=== PATIENT | male | born 1985 | race Two or more races ===

== ENCOUNTER 2022-12-26 15:14 | Emergency (ER) | payer OTHER ==
[~2022-12-26] VITALS: Ht 167.6 cm; Wt 82.6 kg
== END 2022-12-26 20:17 | disposition home or self-care (01) ==
LOC: ER 15:14
DX: M94.0 Chondrocostal junction syndrome [Tietze] (principal)

== ENCOUNTER 2023-05-30 19:46 | Emergency (ER) | payer OTHER ==
[~2023-05-30] VITALS: Ht 167.6 cm; Wt 80.7 kg
[2023-05-30 21:18] LABS: HEMATOCRIT 40.4 % (39.0-48.0); MEAN CELL VOLUME 92.1 fL (80.0-100.00); MEAN CORPUSCULAR HGB CONC 34.7 g/dl (32.0-36.0); PLATELET COUNT 280 K/uL (150-450); RED BLOOD COUNT 4.39 M/uL (4.00-6.00); RED CELL DISTRIBUTION WIDTH 12.9 % (11.5-14.5)
== END 2023-05-30 21:32 | disposition home or self-care (01) ==
LOC: ER 19:47
PROVIDERS: General Practice
DX: J10.1 Influenza due to other identified influenza virus with other respiratory manifestations (principal); Z20.822 Contact with and (suspected) exposure to COVID-19

== ENCOUNTER 2023-06-03 23:40 | Emergency (ER) | payer OTHER ==
[~2023-06-03] VITALS: Ht 167.6 cm; Wt 79.4 kg
[2023-06-04] MEDS ORDERED: BUDESONIDE0.5 MG/2 M IH (07:41)
[2023-06-04] MEDS ORDERED: ORASEP SPRAY30 ML MM (07:41)
[2023-06-04] MEDS ORDERED: ALBUTEROL2.5 MG/3 M IH (07:41)
[2023-06-04] MEDS ORDERED: ZYNCOF 20-400120 ML PO (07:41)
== END 2023-06-04 07:49 ==
LOC: ER 23:40
DX: J11.1 Influenza due to unidentified influenza virus with other respiratory manifestations (principal)

== ENCOUNTER 2023-08-28 09:35 | Emergency (ER) | payer OTHER ==
[~2023-08-28] VITALS: Ht 170.2 cm; Wt 80.7 kg
[~2023-08-28 09:35] MED LIST: ALBUTEROL2.5 MG/3 M IH; BUDESONIDE0.5 MG/2 M IH; ORASEP SPRAY30 ML MM; ZYNCOF 20-400120 ML PO
[2023-08-28] MEDS ORDERED: DEXAMETHASONE SODIUM PHOSPHATE 4 MG/ML VIAL IM STA (10:47)
[2023-08-28] MEDS ORDERED: KETOROLAC TROMETHAMINE 30 MG VIAL IM ONE (11:00)
[2023-08-28 11:34] LABS: HEMATOCRIT 41.3 % (39.0-48.0); HEMOGLOBIN 14.5 g/dL (13-16.00); MEAN CELL VOLUME 90.7 fL (80.0-100.00); MEAN CORPUSCULAR HEMOGLOBIN 31.9 pg (27.00-32.0); MEAN CORPUSCULAR HGB CONC 35.2 g/dl (32.0-36.0); PLATELET COUNT 332 K/uL (150-450); RED BLOOD COUNT 4.55 M/uL (4.00-6.00)
[2023-08-28] MEDS ORDERED: AMOX-CLAV 875-1 EACH PO (14:32)
== END 2023-08-28 14:40 | disposition home or self-care (01) ==
LOC: ER 09:36
PROVIDERS: General Practice
DX: J02.9 Acute pharyngitis, unspecified (principal); Z20.822 Contact with and (suspected) exposure to COVID-19